=== PATIENT | female | born 1960 | race Caucasian/White ===

== ENCOUNTER → 2019-07-19 | Outpatient (CLI) | payer BC | LOC: LAB.O 15:39 | PROVIDERS: ATTEND Registered Nurse General Practice | DX: M35.3 Polymyalgia rheumatica (principal) ==

== ENCOUNTER → 2020-09-11 | Outpatient (CLI) | payer BC | LOC: LAB.O 09:39 | PROVIDERS: ATTEND Surgery | DX: N90.69 Other specified hypertrophy of vulva (principal) ==